=== PATIENT | female | born 1955 | race Caucasian/White ===

== ENCOUNTER → 2017-01-03 | Outpatient (CLI) | payer BC, MEDICARE ==
[~2017-01-03] MED LIST: AMITIZA24 MCG PO; COPAXONE; CYMBALTA PO; HCTZ PO; KLONOPIN0.5 MG PO; MEDI-MECLIZINE25 M1 PO; MEDROL DOSEPAK4 MG PO; NAMENDA10 MG PO; NEURONTIN600 MG PO; POLYGESIC 5/5001 CAP PO; PROVENTIL INH0.5 ML; PROVENTIL17 GM; RESTASIS32 EA; SIMVASTATIN40 MG PO
--- NOTE | ~2017-01-03 | US128 ---
[id number] [facility] [address] [facility] [address]. [place], [place] [address] [id number] O MR#: [id number] Acc #: [id number] NAME: BOBBY ABREU : 1955 SEX: F STUDY DATE/TIME: 01/03/2017 13:42 UNIT: [facility]US ROOM: STUDY DESCRIPTION: Thyroid Attending Physician: Talib Vyas Referring Physician: Talib Vyas Ordering Physician: Physician Non-Staff Primary Care Physician: Eriberto Em M.D. MEDICAL IMAGING REPORT This report is preliminary unless electronic signature is present EXAM Ultrasound thyroid gland. HISTORY Difficulty swallowing. Swelling in the neck. TECHNIQUE The velez-scale color Doppler sonographic images were obtained through the thyroid gland. FINDINGS Right lobe thyroid gland measures 4.6 x 1.6 x 1.9 cm. Left lobe measures 4.8 x 1.2 x 2.2 cm. Isthmus measures about 4 mm in thickness. This patient has heterogeneous nodule within the right lobe of the thyroid gland measuring 1.7 x 1.4 x 1.7 cm. The overall thyroid parenchyma is heterogeneous within the left lobe of the thyroid gland. An additional nodule is measured, measuring 2.2 x 1.4 x 2.4 cm. On some of the images, both nodules have the appearance of heterogeneous thyroid parenchyma rather than true nodules. IMPRESSION The patient has bilateral thyroid nodules. Both of these meet size criteria for percutaneous sampling, and this is recommended. Dictated by... Vivienne Sutton M.D. THIS IS AN ELECTRONICALLY VERIFIED REPORT Vivienne Sutton M.D. at 01/04/2017 5:22 PM AFF/ea TD: 01/04/2017 11:43 JOB #: [id number] MEDICAL IMAGING REPORT Page 1 of 1 COPY
== END | disposition home or self-care (01) ==
LOC: CGUS 13:21
DX: R13.13 Dysphagia, pharyngeal phase (principal); E04.2 Nontoxic multinodular goiter
CPT/HCPCS: 76536